=== PATIENT | male | born 1955 | race Caucasian/White ===

== ENCOUNTER → 2018-05-07 | Outpatient (CLI) | payer BC ==
[~2018-05-07] VITALS: Ht 188 cm; Wt 107.5 kg
[~2018-05-07] MED LIST: CATHETER FLUSH 10 ML SYR IV PRN; CEFU250T11 PO; CTLP20T PO; CYCL10TA9 PO; HYDR1TAB PO; REGADENOSON 0.4 MG/5 ML SYR (LEXISCAN) IV ONE; TMSL.4C PO; TRAM50TA2 PO
--- NOTE | 2018-05-07 16:01 | STRESS TEST ---
DATE OF SERVICE: 05/07/2018 LEXISCAN MYOVIEW STRESS TEST Baseline heart rate is 67. Baseline blood pressure 143/90. Baseline EKG is sinus rhythm with left bundle branch block. In summary, the patient was injected with 10.23 mCi of technetium-99 Myoview and the resting images were obtained and the patient received 0.4 mg of Lexiscan followed by 29.3 mCi of technetium-99 Myoview. Throughout the test, there were no EKG changes. The resting and stress images were reviewed and compared in the short axis, horizontal long axis, and vertical long axis views. Review of the images showed diaphragmatic attenuation affecting the quality of the images with decreased uptake at the inferior wall and inferoseptum. There is no significant reversibility. SSS is 3, SDS 2, TID value 1.03. On the gated images, the left ventricle appeared to be normal size with mild hypokinesia, more pronounced at the septum, probably secondary to left bundle branch block. Calculated ejection fraction 43%. CONCLUSION: 1. The patient tolerated Lexiscan well. 2. Diaphragmatic attenuation with typical male pattern. No significant ischemia was noted. 3. Normal left ventricular size with hypokinesia at the septum, probably due to the underlying left bundle branch block. Calculated ejection fraction 43%. Job ID: [id number] DocumentID: [id number] Dictated Date: 05/07/2018 15:25:29 Production Planning Manager Date: 05/07/2018 16:00:31 Dictated By: CHI BEAVERS MD
== END ==
LOC: CARD 06:47
PROVIDERS: ATTEND Internal Medicine Cardiovascular Disease
DX: R94.31 Abnormal electrocardiogram [ECG] [EKG] (principal); F32.9 Major depressive disorder, single episode, unspecified; E66.9 Obesity, unspecified; Z68.30 Body mass index [BMI] 30.0-30.9, adult; Z89.512 Acquired absence of left leg below knee
CPT/HCPCS: 78452; 93017

== ENCOUNTER → 2021-05-26 | Outpatient (CLI) | payer OTHER ==
[~2021-05-26] MED LIST changes: -CATHETER FLUSH 10 ML SYR IV PRN; -REGADENOSON 0.4 MG/5 ML SYR (LEXISCAN) IV ONE
--- NOTE | 2021-05-26 10:50 | Diagnostic Imaging Report ---
INDICATION: Right knee pain. FINDINGS: Two views. Joint spaces are well maintained. The articulating surfaces are smooth. There are no fractures. No hypertrophic bony changes. No loose bodies. IMPRESSION: Normal right knee. Dictated by: Dictated on workstation # [id number]
--- NOTE | 2021-05-26 10:55 | Diagnostic Imaging Report ---
INDICATION: Back pain. EXAMINATION: Lumbar spine, 3 views. FINDINGS: The spine shows good alignment. The body height is well-maintained without compression fractures. There is degenerative disc disease noted throughout. There is moderate narrowing of the disc spaces at L1-L2 and L2-L3 with hypertrophic endplate changes. The facets show good alignment without pars defect. There is loss of disc space with sclerotic endplate changes at L5-S1. IMPRESSION: Multilevel degenerative disc disease with Modic changes, most severe at L5-S1. Dictated by: Dictated on workstation # [id number]
== END ==
LOC: RAD 10:09
PROVIDERS: ATTEND Family Medicine
DX: Z02.71 Encounter for disability determination (principal); M51.36 Other intervertebral disc degeneration, lumbar region; M25.561 Pain in right knee
CPT/HCPCS: 72100; 73560

== ENCOUNTER → 2022-12-20 | Outpatient (CLI) | payer MEDICARE | LOC: CANPRECLI → CARD 10:01 | PROVIDERS: ATTEND Internal Medicine Cardiovascular Disease | DX: I11.9 Hypertensive heart disease without heart failure (principal); I44.7 Left bundle-branch block, unspecified | CPT/HCPCS: 93306 ==

== ENCOUNTER → 2023-01-21 | Outpatient (CLI) | payer MEDICARE, OTHER ==
[~2023-01-21] MED LIST changes: +REGADENOSON 0.4 MG/5 ML SYR IV ONE
[2023-01-21] MEDS: CATHETER FLUSH 10 ML SYR IVP PRN (07:53)
[2023-01-21 09:19] VITALS: BP 164/100
[2023-01-21] MEDS: REGADENOSON 0.4 MG/5 ML SYR IV ONE (09:24)
--- NOTE | 2023-01-21 11:48 | Cardiology Stress Test Report ---
Stress Test Report Date of Procedure/Referring: Date of Procedure: Jan 21, 2023 PCP Inessa Price MD Admitting Physician Admitting Physician: Attending Physician: Yvonne Choi MD Baseline Heart Rate: 72 Baseline Blood Pressure: Blood Pressure Systolic: 164 Blood Pressure Diastolic: 100 Baseline Vitals Vital Signs Date Time Temp Pulse Resp B/P (MAP) Pulse Ox O2 Delivery O2 Flow Rate FiO2 01/21/23 09:19 72 164/100 (121) Baseline EKG: Baseline EKG: LBBB Summary After explaining the procedure to the patient, he signed a consent and then brought to the stress nuclear laboratory. Patient received 0.4 mg Lexiscan for stress test, ECG, heart rate and blood pressure were monitored continuously. Resting and stress dose of radio tracer were injected, imaging was acquired and reviewed in short axis, horizontal long axis and vertical long axis views. TID: 1.09 SSS: 4 SDS: 2 EF: 54 Patient tolerated Lexiscan well Baseline left bundle branch block persisted during test Mild decrease uptake at the inferior wall and inferoseptum which appeared to be fixed, no significant ischemia or infarction on SPECT images Normal left ventricular size, ejection fraction 54% Copy Copies To 1: INESSA PRICE MD, BASHAR J MD Jan 21, 2023 11:48
== END ==
LOC: CARD 08:15
PROVIDERS: ATTEND Internal Medicine Cardiovascular Disease
DX: I44.7 Left bundle-branch block, unspecified (principal)
CPT/HCPCS: 78452; 93017; A9502